=== PATIENT | male | born 1960 | race Caucasian/White ===

== ENCOUNTER 2024-03-09 12:48 | Emergency (ER) | payer OTHER, SELFPAY ==
--- NOTE | ~2024-03-09 | XR_ITS ---
EXAMINATION: XR elbow LT min 3V DATE: 03/09/2024 13:21 INDICATION: Medial left elbow pain post injury TECHNIQUE: Anteroposterior, two oblique and lateral views of the left elbow were obtained. COMPARISON: None. FINDINGS: Minimally displaced fracture intra-articular fracture of the coronoid process of the proximal ulna wi thout significant fracture gap or step-off along the articular surface. No other fractures identified . Mild osteoarthritis at the left elbow with mild nonuniform joint space narrowing at the ulnotrochle ar articulation. Soft tissues are unremarkable. No elbow joint effusion. IMPRESSION: 1. Small minimally displaced fracture of the coronoid process of the proximal ulna. Reviewed, dictated and finalized at location A. IMPRESSION: 1. 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
[2024-03-09 12:59] VITALS: BP 117/83; PULSE 63; RESP 16; TEMP 36.8; O2SAT 98
--- NOTE | 2024-03-09 13:07 | ED.UPPEXIN ---
HPI - Extremity Injury (Upper) General Chief Complaint: Extremity Injury, Upper Stated Complaint: Injured Left Elbow Time Seen by Provider: 03/09/24 13:05 Source: patient, family, RN notes reviewed and old records reviewed Mode of arrival: ambulatory Limitations: no limitations History of Present Illness HPI narrative: 63 year old male who presents to [facility] care accompanied by spouse with complaints of injury to his left elbow when he fell on the concrete yesterday hitting his left elbow. Patient reports that he he has pain to the base of humerus and medial olecranon process area with swelling and bruising noted to area. Patient is unable to fully extend his left arm, has full mobility of left shoulder and is able to move wrist.strong pulses present to left arm.Patient has taken some Ibuprofen for his discomfort. MD complaint: injury to: left and elbow Onset (ago): day(s) (yesterday) Handedness: right Place: outdoors Exacerbating factors: movement of extremity Treatments prior to arrival: cold therapy and NSAIDS Related Data Home Medications Medication Instructions Recorded Confirmed saw palm 160 mg-vit E 100 1 tablet PO DAILY 02/21/23 03/09/24 unit-selen 100 [id number]-[id number] tablet (Impermium) Allergies Allergy/AdvReac Type Severity Reaction Status Date / Time No Known Allergies Allergy Verified 02/21/23 15:30 Review of Systems Review of Systems: CONSTITUTIONAL: Denies fever, chills, or sweats. EYES: Denies visual changes, redness, or discharge. ENT: Denies rhinorrhea, congestion, sore throat, or otalgia. CARDIOVASCULAR: Denies chest pain, palpitations, or edema. RESPIRATORY: Denies cough or dyspnea. GASTROINTESTINAL: Denies abdominal pain, nausea, vomiting, or diarrhea. GENITOURINARY: Denies dysuria or hematuria. SKIN: Denies rash or itching. MUSCULOSKELETAL: Denies back pain,reports pain to left elbow from injury, or myalgia. NEUROLOGIC: Denies headache, numbness, or weakness. PSYCHIATRIC: Denies anxiety or depression. All systems reviewed & are unremarkable except as noted in HPI and below PMFSH Past Medical History Medical History (Updated 03/10/24 @ 11:33 by Lisa Christopher NP) Right clavicle fracture Surgical History Surgical History (Updated 03/10/24 @ 11:28 by Lisa Christopher NP) History of repair of left rotator cuff (2019) bicep and tricep tendon repair left arm Social History Social History (Updated 03/10/24 @ 11:29 by Lisa Christopher NP) Smoking status: Never smoker Alcohol intake: current Alcohol use details: social Substance use type: does not use Living arrangements: with family Gender identity (if verbalized by the patient): Male Comments At time of signature, agree with nursing past medical, surgical, social and family history. There is no relevant family history pertinent to the presenting complaint Exam Narrative: GENERAL: Well-appearing, well-nourished, and in no acute distress. HEAD: Normocephalic, atraumatic. EYES: PERRLA and EOMI. ENT: Nares clear, no rhinorrhea or epistaxis. Mucous membranes moist. NECK: Supple.no lymphadenopathy CHEST: Clear to auscultation. No respiratory distress.SAO2 98% on room air HEART: Regular rate and rhythm. No murmur heard. Normal peripheral pulses. ABDOMEN: Soft, nontender, nondistended, normal active bowel sounds. EXTREMITIES: Normal range of motion. No edema.Exception noted to left elbow with swelling and bruising to his posterior aspect of elbow with pain unable to extend his left arm at elbow region, circulation and sensation is intact. SKIN: Warm, dry, no rash. NEURO: No focal deficits. Alert and oriented x3. Course Course Emergency Course: Patient is aware of diagnosis, understands and agrees to treatment plan.? Anticipatory guidance given.? Patient agrees to follow-up as directed and is aware of reasons to seek care at the emergency department. Portions of this record may have b
== END 2024-03-09 14:00 | disposition home or self-care (01) ==
PROVIDERS: Emergency Provider Registered Nurse; PCP Family Medicine Adolescent Medicine
DX: S52.042A Displaced fracture of coronoid process of left ulna, initial encounter for closed fracture (principal); W19.XXXA Unspecified fall, initial encounter
CPT/HCPCS: 29105; 73080; 99214; A4565; G0463